=== PATIENT | female | born 1970 | race Caucasian/White ===

== ENCOUNTER → 2017-03-30 | Outpatient (CLI) | payer MEDICAID ==
[~2017-03-30] MED LIST: BREO ELLIPTA 21 EACH IH; BUSPIRONE HCL7.5 MG PO; CLONIDINE HYDR0.3 MG PO; FLEXERIL10 MG PO; HYDROCODONE/APA1 TA8 PO; HYDROXYZINE 25M25 MG PO; LIPITOR40 MG PO; LORATADINE 10MG10 M1 PO; METFORMIN500 MG PO; OMEPRAZOLE40 MG PO; PAROXETINE20 MG PO; RELAFEN 750MG750 MG OR; TRAZODONE100 MG PO; [UNRECOGNIZED DRUG - OTHER] OP
--- NOTE | 2017-03-31 06:04 | RADIOLOGY REPORT PS360 ---
MRI-L-SPINE W/O HISTORY: Bilateral low back pain with burning pain down both legs DEGENERATION OF LUMBAR ORDERING PHYSICIAN: Jan Marshall MD PATIENT AGE: 46 years COMPARISON: None TECHNIQUE: Standard multiplanar multiecho sequences are performed without contrast. 3-D MIP and myelographic images are also rendered and reviewed FINDINGS: There is normal alignment. The spinal cord ends at the L1 level. T11-T12, T12-L1, L1-L2, L2-L3, and L3-L4 have an unremarkable appearance. L4-L5: Minimal bulging disc along with mild facet and ligamentum flavum hypertrophy with some mild to moderate foraminal narrowing bilaterally slightly greater on the left. L5-S1: Degenerative disc disease with bulging disc with a small central disc protrusion very slightly eccentric to the left abutting the medial aspect of both S1 nerve roots slightly greater on the left. No canal stenosis or extruded herniated disc. IMPRESSION: 1. Moderate bilateral foraminal narrowing slightly greater on the left at L4-L5 from bulging disc and facet and ligamentum hypertrophy 2. Bulging disc with a small central disc protrusion at L5-S1 very slightly eccentric to the left abutting the medial aspect of both S1 nerve roots slightly greater on the left.
== END ==
LOC: RAD 03-28 10:15
DX: M51.37 Other intervertebral disc degeneration, lumbosacral region (principal)